=== PATIENT | female | born 1990 | race Caucasian/White ===

== ENCOUNTER → 2017-01-26 | Outpatient (CLI) | payer OTHER ==
--- NOTE | 2017-01-26 11:09 | US ---
EXAMINATION TYPE: US venous doppler duplex LE DATE OF EXAM: 01/26/2017 10:30 AM COMPARISON: NONE CLINICAL HISTORY: BLE I83.93 Vernicose Veins,M79.652 Lle pain R20.2 P. SIDE PERFORMED: demetrio scanned over painful area demetrio lateral thighs over vernicose veins TECHNIQUE: The lower extremity deep venous system is examined utilizing real time linear array sonog sepideh with graded compression, doppler sonography and color-flow sonography. VESSELS IMAGED: External Iliac Vein (EIV) Common Femoral Vein Deep Femoral Vein Greater Saphenous Vein * Femoral Vein Popliteal Vein Small Saphenous Vein * Proximal Calf Veins (* superficial vessels) Right Leg: Negative for DVT Left Leg: Negative for DVT IMPRESSION: 1. Lower extremity venous ultrasound is negative for deep venous thrombosis bilateral lower extremiti es.
== END | disposition home or self-care (01) ==
LOC: RADUSWWP 09:49
PROVIDERS: ATTEND Family Medicine
DX: M79.652 Pain in left thigh (principal); R20.2 Paresthesia of skin
CPT/HCPCS: 93970

== ENCOUNTER → 2017-05-04 | Outpatient (CLI) | payer OTHER ==
--- NOTE | 2017-05-04 12:26 | XR ---
EXAMINATION TYPE: XR chest 2V DATE OF EXAM: 05/04/2017 COMPARISON: 12/29/2015 HISTORY: Cough and fever TECHNIQUE: Frontal and lateral views of the chest are obtained. FINDINGS: There is no focal air space opacity. Peribronchial cuffing may reflect bronchitis. Correlate clinical ly. No evidence for pneumothorax. No pleural effusion. The cardiac silhouette size is within normal limits. The osseous structures are grossly intact. IMPRESSION: 1. Correlate for bronchitis.
== END | disposition home or self-care (01) ==
LOC: RADXRMAIN 12:07
PROVIDERS: ATTEND Family Medicine
DX: R05 Cough (principal); R06.2 Wheezing; R68.83 Chills (without fever)
CPT/HCPCS: 71046; 87502

== ENCOUNTER 2017-08-28 16:50 | Emergency (ER) | payer OTHER ==
[2017-08-28 17:42] VITALS: RESP 18
--- NOTE | 2017-08-28 18:10 | XR ---
EXAMINATION TYPE: XR knee complete RT DATE OF EXAM: 08/28/2017 COMPARISON: NONE HISTORY: Knee pain TECHNIQUE: 3 views FINDINGS: I see no fracture nor dislocation. Joint spaces are normal. There is no evidence of joint e ffusion. IMPRESSION: Negative right knee exam.
--- NOTE | 2017-08-28 20:19 | ED ---
General Adult HPI - General Chief complaint: Extremity Injury, Lower Stated complaint: Knee Pain Time Seen by Provider: 08/28/17 20:02 Source: patient, RN notes reviewed Mode of arrival: ambulatory Limitations: no limitations - History of Present Illness Initial comments: 26-year-old female presents to the emergency department for a chief complaint of right knee pain 2 weeks. Patient states she stood up strangely 2 weeks ago and injured her right knee. Patient states since then she has had some pain in the anterior knee. Patient denies any pain in the posterior knee or calf. Patient denies any pain in the natarajan ankle or foot. Patient states she took Motrin once today but has not been taking it consistently. Patient denies any chance of . Patient has no other complaints at this time including shortness of breath, chest pain, abdominal pain, nausea or vomiting, headache, or visual changes. - Related Data Home Medications Medication Instructions Recorded Confirmed Norgestimate-Ethinyl Estradiol 1 tab PO HS 08/28/17 08/28/17 [Sprintec 28 Day Tablet] Omeprazole [PriLOSEC] 20 mg PO AC-BRKFST 08/28/17 08/28/17 Previous Rx's Medication Instructions Recorded Ibuprofen [Motrin] 600 mg PO Q8HR PRN #20 tab 08/28/17 Allergies Allergy/AdvReac Type Severity Reaction Status Date / Time No Known Allergies Allergy Verified 08/28/17 20:31 Review of Systems ROS Statement: Those systems with pertinent positive or pertinent negative responses have been documented in the HPI. ROS Other: All systems not noted in ROS Statement are negative. Past Medical History Past Medical History: No Reported History History of Any Multi-Drug Resistant Organisms: None Reported Past Surgical History: No Surgical Hx Reported Past Psychological History: No Psychological Hx Reported Smoking Status: Never smoker Past Alcohol Use History: Occasional Past Drug Use History: None Reported General Exam Limitations: no limitations General appearance: alert, in no apparent distress Head exam: Present: atraumatic, normocephalic, normal inspection Respiratory exam: Present: normal lung sounds bilaterally. Absent: respiratory distress, wheezes, rales, rhonchi, stridor Cardiovascular Exam: Present: regular rate, normal rhythm, normal heart sounds. Absent: systolic murmur, diastolic murmur, rubs, gallop, clicks Extremities exam: Present: full ROM (Patient has full extension and flexion of the right knee. Patient is able to bear weight on the right knee. Patient has full range of motion in the right ankle.), tenderness (tenderness in the anterior right knee. No tenderness behind the knee or in the calf.), normal capillary refill (Refill less than 2 seconds and pedal pulse 2+.), other ( sensation intact). Absent: pedal edema, joint swelling, calf tenderness (No calf tenderness, no calf swelling, no increased warmth on the right side.) Course Vital Signs 08/28/17 17:38 Temperature 97.8 F Pulse Rate 92 Respiratory 18 Rate Blood Pressure 168/77 O2 Sat by Pulse 98 Oximetry Medical Decision Making - Medical Decision Making 26-year-old female with a chief complaint of right knee pain 2 weeks. Patient had an injury 2 weeks ago and she stood up wrong and felt a pull in the front of her knee. Patient has had anterior knee pain since then. No pain in the posterior knee or calf. X-ray demonstrates no acute fractures or dislocations. Patient likely has a muscular injury or ligamentous injury of the right knee. She was given a referral to orthopedics. She is to follow-up with orthopedics in one to 2 days. She was given a prescription for Motrin as well. Patient denies any chance of . Patient was also educated to rest ice compress and elevate the right knee. Disposition Clinical Impression: Knee pain, right Disposition: HOME SELF-CARE Condition: Good Instructions: Knee Pain (ED) Additional Instructions: Please take Motrin and Tylenol as directed. Please return to the emergency department if you have any worsening symptoms. Otherwise follow-up with primary care or orthopedics in 1-2 days. Prescriptions: Ibuprofen [Motrin] 600 mg PO Q8HR PRN #20 tab PRN Reason: Pain Is patient prescribed a controlled substance at d/c from ED?: No Referrals: Paola Dunne MD [Primary Care Provider] - 1-2 days Santana Toth DO [Doctor of Osteopathic Medicine] - 1-2 days Time of Disposition: 20:18
[2017-08-28 20:34] VITALS: BP 142/79; PULSE 88; TEMP 98
== END 2017-08-28 20:34 | disposition home or self-care (01) ==
LOC: EC 16:50
DX: M25.561 Pain in right knee (principal); Z79.3 Long term (current) use of hormonal contraceptives; Z79.899 Other long term (current) drug therapy; X50.1XXA Overexertion from prolonged static or awkward postures, initial encounter; Y93.89 Activity, other specified
CPT/HCPCS: 99283

== ENCOUNTER 2019-08-11 20:57 | Emergency (ER) | payer OTHER ==
[2019-08-11] MEDS ORDERED: SODIUM CHLORIDE 0.9% 500 ML 500 ML IV STA (21:27)
--- NOTE | 2019-08-11 22:37 | ED ---
General Adult HPI - General Chief complaint: Chest Pain Stated complaint: Chest pain Time Seen by Provider: 08/11/19 21:03 Source: patient, RN notes reviewed, old records reviewed Mode of arrival: ambulatory Limitations: no limitations - History of Present Illness Initial comments: 28-year-old female patient with no pertinent past medical history significant to ED for evaluation of chest pain. Patient reports that is partially 7 PM she had an she describes approximately one hour of left parasternal chest pain somewhat sharp in nature. Patient does report that throughout the day she also had some midthoracic back pain which is not unusual for her. Denies any current pain this time present any other associated symptoms. Denies any chance of being . Systemic: Pt denies fatigue, fever/chills, rash. Pt denies weakness, night sweats, weight loss. Neuro: Pt denies headache, visual disturbances, syncope or pre-syncope. HEENT: Pt denies ocular discharge or irritation, otalgia, rhinorrhea, pharyngitis or notable lymphadenopathy. Cardiopulmonary: Pt denies chest pain, SOB, heart palpitations, dyspnea on exertion. Abdominal/GI: Pt denies abdominal pain, n/v/d. : Pt denies dysuria, burning w/ urination, frequency/urgency. Denies new onset urinary or bowel incontinence. MSK: Pt denies myalgia, loss of strength or function in extremities. Neuro: Pt denies new onset weakness, paresthesias. - Related Data Home Medications Medication Instructions Recorded Confirmed Norgestimate-Ethinyl Estradiol 1 tab PO HS 08/28/17 08/28/17 [Sprintec 28 Day Tablet] Omeprazole [PriLOSEC] 20 mg PO AC-BRKFST 08/28/17 08/28/17 Previous Rx's Medication Instructions Recorded Ibuprofen [Motrin] 600 mg PO Q8HR PRN #20 tab 08/28/17 Allergies Allergy/AdvReac Type Severity Reaction Status Date / Time No Known Allergies Allergy Verified 08/28/17 20:31 Review of Systems ROS Statement: Those systems with pertinent positive or pertinent negative responses have been documented in the HPI. ROS Other: All systems not noted in ROS Statement are negative. Past Medical History Past Medical History: No Reported History History of Any Multi-Drug Resistant Organisms: None Reported Past Surgical History: No Surgical Hx Reported Past Psychological History: No Psychological Hx Reported Smoking Status: Never smoker Past Alcohol Use History: Occasional Past Drug Use History: None Reported General Exam - General Exam Comments Initial Comments: Constitutional: NAD, AOX3, Pt has pleasant affect. HEENT: NC/AT, trachea midline, neck supple, no lymphadenopathy. Posterior pharynx non erythematous, without exudates. External ears appear normal, without discharge. Mucous membranes moist. Eyes PERRLA, EOM intact. There is no scleral icterus. No pallor noted. Cardiopulmonary: RRR, no murmurs, rubs or gallops, no JVD noted. Lungs CTAB in anterior and posterior alexander. No peripheral edema. Abdominal exam: Abdomen soft and non-distended. Abdomen non-tender to palpation in all 4 quadrants. Bowel sounds active in LLQ. No hepatosplenomegaly. No ecchymosis Neuro: CN II-XII grossly intact. No nuchal rigidity. No raccon eyes, no barksdale sign, no hemotympanum. No cervical spinal tenderness. MSK: Thoracic back pain reproducible on range of motion. No posterior calf tenderness bilaterally, homans sign negative bilaterally. Posterior tibialis and radial pulse +2 bilaterally. Sensation intact in upper and lower extremities. Full active ROM in upper and lower extremities, 5/5 stregnth. Limitations: no limitations Course Vital Signs 08/11/19 08/11/19 08/12/19 21:55 22:59 00:34 Temperature 97.8 F 98.2 F Pulse Rate 75 72 77 Respiratory 18 20 16 Rate Blood Pressure 142/78 137/77 124/63 O2 Sat by Pulse 99 99 100 Oximetry Medical Decision Making - Medical Decision Making 28-year-old female patient with no pertinent past medical history significant to ED for evaluation of chest pain. Patient reports that is partially 7 PM she had an she describes approximately one hour of left parasternal chest pain somewhat sharp in nature. Patient does report that throughout the day she also had some midthoracic back pain which is not unusual for her. Denies any current pain this time present any other associated symptoms. Denies any chance of being . Patient vital signs are stable, afebrile. Physical exam displayed mid thoracic lumbar back discomfort reproducible upon range of motion. Lymph investigations are not impressive. Troponin is negative. D-dimer 0.48. UA negative. Patient continues to be pain-free. Plain films of chest x-ray and lumbar spine do not display acute process. EKG is nonischemic. Patient chest pain is atypical in nature. Pt will be discharged with outpatient follow- up and return to ED if condition worsens. Case discussed with Dr. Degroot. - Lab Data Result diagrams: 08/11/19 22:15 08/11/19 22:15 Lab Results 08/11/19 08/11/19 08/11/19 Range/Units 22:15 22:15 22:15 WBC 9.9 (3.8-10.6) k/uL RBC 4.89 (3.80-5.40) m/uL Hgb 13.5 (11.4-16.0) gm/dL Hct 41.3 (34.0-46.0) % MCV 84.5 (80.0-100.0) fL MCH 27.5 (25.0-35.0) pg MCHC 32.6 (31.0-37.0) g/dL RDW 13.8 (11.5-15.5) % Plt Count 273 (150-450) k/uL Neutrophils % 74 % Lymphocytes % 18 % Monocytes % 3 % Eosinophils % 3 % Basophils % 0 % Neutrophils # 7.3 (1.3-7.7) k/uL Lymphocytes # 1.8 (1.0-4.8) k/uL Monocytes # 0.3 (0-1.0) k/uL Eosinophils # 0.3 (0-0.7) k/uL Basophils # 0.0 (0-0.2) k/uL D-Dimer 0.48 (<0.60) mg/L FEU Sodium 138 (137-145) mmol/L Potassium 4.1 (3.5-5.1) mmol/L Chloride 105 (98-107) mmol/L Carbon Dioxide 26 (22-30) mmol/L Anion Gap 7 mmol/L BUN 13 (7-17) mg/dL Creatinine 0.70 (0.52-1.04) mg/dL Est GFR (CKD-EPI)AfAm >90 (>60 ml/min/1.73 sqM) Est GFR (CKD-EPI)NonAf >90 (>60 ml/min/1.73 sqM) Glucose 89 (74-99) mg/dL Calcium 8.9 (8.4-10.2) mg/dL Total Bilirubin 0.3 (0.2-1.3) mg/dL AST 18 (14-36) U/L ALT 16 (4-34) U/L Alkaline Phosphatase 75 (38-126) U/L Troponin I (0.000-0.034) ng/mL Total Protein 6.6 (6.3-8.2) g/dL Albumin 3.6 (3.5-5.0) g/dL Urine Color Urine Appearance (Clear) Urine pH (5.0-8.0) Ur Specific [place] (1.001-1.035) Urine Protein (Negative) Urine Glucose (UA) (Negative) Urine Ketones (Negative) Urine Blood (Negative) Urine Nitrite (Negative) Urine Bilirubin (Negative) Urine Urobilinogen (<2.0) mg/dL Ur Leukocyte Esterase (Negative) Urine RBC (0-5) /hpf Urine WBC (0-5) /hpf Ur Squamous Epith Cells (0-4) /hpf Urine Bacteria (None) /hpf Hyaline Casts (0-2) /lpf Urine Mucus (None) /hpf Urine HCG, Qual (Not Detectd) 08/11/19 08/11/19 08/11/19 Range/Units 22:15 22:30 22:30 WBC (3.8-10.6) k/uL RBC (3.80-5.40) m/uL Hgb (11.4-16.0) gm/dL Hct (34.0-46.0) % MCV (80.0-100.0) fL MCH (25.0-35.0) pg MCHC (31.0-37.0) g/dL RDW (11.5-15.5) % Plt Count (150-450) k/uL Neutrophils % % Lymphocytes % % Monocytes % % Eosinophils % % Basophils % % Neutrophils # (1.3-7.7) k/uL Lymphocytes # (1.0-4.8) k/uL Monocytes # (0-1.0) k/uL Eosinophils # (0-0.7) k/uL Basophils # (0-0.2) k/uL D-Dimer (<0.60) mg/L FEU Sodium (137-145) mmol/L Potassium (3.5-5.1) mmol/L Chloride (98-107) mmol/L Carbon Dioxide (22-30) mmol/L Anion Gap mmol/L BUN (7-17) mg/dL Creatinine (0.52-1.04) mg/dL Est GFR (CKD-EPI)AfAm (>60 ml/min/1.73 sqM) Est GFR (CKD-EPI)NonAf (>60 ml/min/1.73 sqM) Glucose (74-99) mg/dL Calcium (8.4-10.2) mg/dL Total Bilirubin (0.2-1.3) mg/dL AST (14-36) U/L ALT (4-34) U/L Alkaline Phosphatase (38-126) U/L Troponin I <0.012 (0.000-0.034) ng/mL Total Protein (6.3-8.2) g/dL Albumin (3.5-5.0) g/dL Urine Color Yellow Urine Appearance Cloudy H (Clear) Urine pH 5.5 (5.0-8.0) Ur Specific [place] 1.018 (1.001-1.035) Urine Protein Negative (Negative) Urine Glucose (UA) Negative (Negative) Urine Ketones Negative (Negative) Urine Blood Negative (Negative) Urine Nitrite Negative (Negative) Urine Bilirubin Negative (Negative) Urine Urobilinogen <2.0 (<2.0) mg/dL Ur Leukocyte Esterase Negative (Negative) Urine RBC 1 (0-5) /hpf Urine WBC 2 (0-5) /hpf Ur Squamous Epith Cells 8 H (0-4) /hpf Urine Bacteria Rare H (None) /hpf Hyaline Casts 1 (0-2) /lpf Urine Mucus Rare H (None) /hpf Urine HCG, Qual Not Detected (Not Detectd) - EKG Data -: EKG Interpreted by Me (and Dr. Degroot ) EKG Comments: Ventricular rate 75, NC interval 138, QRS 98, QT/QTC 388/433. Normal sinus rhythm, normal EKG, no concern for acute ischemia. Disposition Clinical Impression: Atypical chest pain, Strain of thoracic back region Disposition: HOME SELF-CARE Condition: Stable Instructions (If sedation given, give patient instructions): Chest Wall Pain (ED), Thoracic Back Strain (ED) Additional Instructions: Follow-up with primary care provider tomorrow. Return to ER if worsens in any way. Is patient prescribed a controlled substance at d/c from ED?: No Referrals: Paola Dunne MD [Primary Care Provider] - 1-2 days
[2019-08-11 23:00] LABS: Basophils % (A) 0 %; Eosinophils # (A) 0.3 k/uL (0-0.7); Eosinophils % (A) 3 %; HCT 41.3 % (34.0-46.0); HGB 13.5 gm/dL (11.4-16.0); Lymphocytes # (A) 1.8 k/uL (1.0-4.8); Lymphocytes % (A) 18 %; MCH 27.5 pg (25.0-35.0); MCHC 32.6 g/dL (31.0-37.0); MCV 84.5 fL (80.0-100.0); Monocytes # (A) 0.3 k/uL (0-1.0); Monocytes % (A) 3 %; Neutrophils # (A) 7.3 k/uL (1.3-7.7); Neutrophils % (A) 74 %; Platelet Count 273 k/uL (150-450); RBC 4.89 m/uL (3.80-5.40); RDW 13.8 % (11.5-15.5); WBC 9.9 k/uL (3.8-10.6)
[2019-08-11 23:09] LABS: ALT 16 U/L (4-34); AST 18 U/L (14-36); African American GFR (CKD) >90 (>60 ml/min/1.73 sqM); Albumin 3.6 g/dL (3.5-5.0); Alkaline Phosphatase 75 U/L (38-126); Anion Gap 7 mmol/L; Blood Urea Nitrogen 13 mg/dL (7-17); Calcium 8.9 mg/dL (8.4-10.2); Carbon Dioxide 26 mmol/L (22-30); Chloride 105 mmol/L (98-107); Glucose 89 mg/dL (74-99); Non-African American GFR(CKD) >90 (>60 ml/min/1.73 sqM); Potassium 4.1 mmol/L (3.5-5.1); Sodium 138 mmol/L (137-145); Total Bilirubin 0.3 mg/dL (0.2-1.3); Total Protein 6.6 g/dL (6.3-8.2)
--- NOTE | 2019-08-11 23:09 | XR ---
EXAMINATION TYPE: XR chest 1V portable DATE OF EXAM: 08/11/2019 COMPARISON: 05/04/2017 HISTORY: Chest pain TECHNIQUE: FINDINGS: Heart and mediastinum are normal. Lungs are clear of infiltrate. There is no heart failure. There are chest leads. Costophrenic angles are clear. Bony thorax is intact IMPRESSION: No active cardiopulmonary disease. Normal heart. No change.
--- NOTE | 2019-08-11 23:10 | XR ---
EXAMINATION TYPE: XR thoracic spine complete DATE OF EXAM: 08/11/2019 COMPARISON: NONE HISTORY: Back pain TECHNIQUE: 4 views FINDINGS: Thoracic vertebra have normal spacing and alignment. Posterior elements are intact. There i s no paraspinal mass. There is no compression fracture. IMPRESSION: Normal thoracic spine exam.
[2019-08-11 23:14] LABS: Appearance,Urine Cloudy (Clear); Bacteria,Urine Rare /hpf; Bilirubin,Urine Negative (Negative); Blood,Urine Negative (Negative); Color,Urine Yellow; Glucose,Urine (UA) Negative (Negative); Hyaline Casts,Urine 1 /lpf (0-2); Ketones,Urine Negative (Negative); Leukocyte Esterase,Urine Negative (Negative); Mucus,Urine Rare /hpf; Nitrite,Urine Negative (Negative); PH, Urine 5.5 (5.0-8.0); Protein,Urine Negative (Negative); RBC,Urine 1 /hpf (0-5); Specific Gravity,Urine 1.018 (1.001-1.035); Squamous Epithelial Cell,Urine 8 /hpf (0-4); Urobilinogen,Urine <2.0 mg/dL (<2.0); WBC,Urine 2 /hpf (0-5)
[2019-08-12] MEDS ORDERED: ACETAMINOPHEN TAB 325 MG TAB PO STA ×2 (00:14→00:32)
[2019-08-12 00:36] VITALS: BP 124/63; PULSE 77; RESP 16; TEMP 98.2
== END 2019-08-12 00:34 | disposition home or self-care (01) ==
LOC: EC 20:57
DX: R07.89 Other chest pain (principal); S29.012A Strain of muscle and tendon of back wall of thorax, initial encounter; X58.XXXA Exposure to other specified factors, initial encounter
CPT/HCPCS: 36415; 71045; 72072; 80053; 81001; 81025; 84484; 85025; 85379; 93005; 96360; 99285

== ENCOUNTER → 2019-12-12 | Outpatient (CLI) | payer OTHER ==
--- NOTE | 2019-12-12 15:29 | US ---
EXAMINATION TYPE: US pelvis complete transvag plus Doppler DATE OF EXAM: 12/12/2019 COMPARISON: 06/15/2015 CLINICAL HISTORY: 29-year-old female N91.2 Amenorrhea. Patient states not having a period x 4 months. Patient started menses x 2 days ago. TECHNIQUE: Transabdominal sonographic images of the pelvis were acquired. Transvaginal sonographic images were medically necessary to better assess the following anatomy: Ovaries. Color Doppler and sp ectral waveform analysis of the ovarian arteries and veins. Date of LMP: 12/10/2019, G0 FINDINGS: EXAM MEASUREMENTS: Uterus: 11.3 x 6.2 x 4.4 cm Endometrial Stripe: 0.5 cm Right Ovary: 3.8 x 2.9 x 3.0 cm Left Ovary: 9.4 x 7.1 x 6.8 cm 1. Uterus: Anteverted and otherwise wnl 2. Endometrium: wnl 3. Right Ovary: echogenic circular lesion - 2.2 x 1.8 x 1.7 cm, possible complicated cyst or dermoid . There is satisfactory arterial and venous flow. 4. Left Ovary: Large 9.4 cm mixed lesion comprised of some suspected cystic area and echogenic nodul ar areas in the expected region of the left ovary. No residual normal ovarian parenchyma seen. 5. Bilateral Adnexa: No other evident adnexal abnormality. 6. Posterior cul-de-sac: no free fluid IMPRESSION: 1. Large 9.4 cm lesion comprised of cystic portion and echogenic nodular areas within the left adnexa likely of ovarian etiology. No normal ovarian parenchyma seen to assess the vasculature. 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 2. Possible smaller 2.2 cm dermoid within the right ovary. No evidence for right ovarian torsion. 3. Femoral pelvic MRI to further evaluate.
== END | disposition home or self-care (01) ==
LOC: RADUSWWP 12:11
PROVIDERS: ATTEND Family Medicine
DX: N91.2 Amenorrhea, unspecified (principal); N83.202 Unspecified ovarian cyst, left side; N83.201 Unspecified ovarian cyst, right side
CPT/HCPCS: 76830; 76856

== ENCOUNTER → 2020-05-19 | Outpatient (CLI) | payer OTHER ==
--- NOTE | 2020-05-19 13:49 | US ---
EXAMINATION TYPE: US pelvis complete transvag DATE OF EXAM: 05/19/2020 COMPARISON: US 12/12/2019 CLINICAL HISTORY: N91.2; N92.6; Z87.42. Irregular cycles. Patient had a dermoid removed from her left ovary in January 2020. Morbidly obese TECHNIQUE: . Transabdominal sonographic images of the pelvis were acquired. Transvaginal sonographi c images were medically necessary to better assess the following anatomy: Ovaries Date of LMP: Today, 05/19/2020 EXAM MEASUREMENTS: Uterus: 7.6 x 4.0 x 5.4 cm Endometrial Stripe: 0.5 cm Right Ovary: 3.6 x 2.5 x 3.6 cm Left Ovary: 3.1 x 2.1 x 1.9 cm 1. Uterus: Anteverted Nabothian cysts visualized 2. Endometrium: wnl 3. Right Ovary: Echogenic area visualized measuring 2.0 x 1.9 x 2.0 cm, probable dermoid. This previ ously measured 2.2 x 1.8 x 1.7 cm on 12/12/2019 4. Left Ovary: Difficult to exclude some residual dermoid tissue measuring 2.0 cm 5. Bilateral Adnexa: Free fluid left adnexa 6. Posterior cul-de-sac: small amount of free fluid visualized Anteverted uterus. Some tiny nabothian cysts in the upper cervix. Small amount of free fluid in pelvi c cul-de-sac extending left of midline. Nonsimple fluid in the left pelvis is noted. Poor visualizati on of the endometrium felt within normal limits. Both ovaries identified. Right ovary shows 2.0 cm peripheral hyperechoic lesion similar to prior. Lef t ovary shows some peripheral hyperechoic tissue remaining present. IMPRESSION: Possible some residual dermoid left ovary but significantly improved from prior. Stable 2 .0 cm lesion right ovary favoring dermoid. Small amount of nonsimple fluid in pelvis extending left o f midline.
== END | disposition home or self-care (01) ==
LOC: RADUSWWP 12:21
PROVIDERS: ATTEND Family Medicine
DX: N83.8 Other noninflammatory disorders of ovary, fallopian tube and broad ligament (principal); R93.5 Abnormal findings on diagnostic imaging of other abdominal regions, including retroperitoneum; Z87.42 Personal history of other diseases of the female genital tract
CPT/HCPCS: 76830; 76856

== ENCOUNTER 2020-10-07 01:16 | Emergency (ER) | payer OTHER ==
[2020-10-07 01:31] VITALS: TEMP 97.9
[2020-10-07] MEDS ORDERED: HYDROmorphone 1 MG/ML 1 ML SYRINGE IM STA (01:48)
[2020-10-07] MEDS ORDERED: KETOROLAC 15 MG/ML 1 ML VIAL IM STA (01:48)
[2020-10-07] MEDS ORDERED: predniSONE 20 MG TAB PO STA (01:48)
--- NOTE | 2020-10-07 01:55 | ED ---
Back Pain HPI - General Chief Complaint: Back Pain/Injury Stated Complaint: Lt Leg Pain Time Seen by Provider: 10/07/20 01:34 Source: patient Limitations: no limitations - History of Present Illness Initial Comments: 's patient is a 29-year-old woman who presents with complaint of left low back pain radiating to her left leg. She states that is been going on about 2 weeks, getting a little worse over the past few days. Tonight she could not obtain any rests she presents for evaluation. The patient denies any left leg weakness. No change in bladder or bowel function. No saddle anesthesia. She did not have any known trauma. 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 MD Complaint: back pain Onset/Timin -: week(s) Similar Symptoms Previously: Yes Place: work Radiation: buttocks, left leg Severity: severe Quality: burning, aching Consistency: constant Improves With: none Worsens With: sitting upright Associated Symptoms: denies other symptoms - Related Data Home Medications Medication Instructions Recorded Confirmed Norgestimate-Ethinyl Estradiol 1 tab PO HS 08/28/17 08/28/17 [Sprintec 28 Day Tablet] Omeprazole [PriLOSEC] 20 mg PO AC-BRKFST 08/28/17 08/28/17 Previous Rx's Medication Instructions Recorded Ibuprofen [Motrin] 600 mg PO Q8HR PRN #20 tab 08/28/17 Methocarbamol [Robaxin-750] 750 mg PO TID PRN #30 tablet 10/07/20 predniSONE 60 mg PO DAILY #30 tab 10/07/20 Allergies Allergy/AdvReac Type Severity Reaction Status Date / Time No Known Allergies Allergy Verified 10/07/20 01:31 Review of Systems ROS Statement: Those systems with pertinent positive or pertinent negative responses have been documented in the HPI. ROS Other: All systems not noted in ROS Statement are negative. Constitutional: Denies: fever, chills Respiratory: Denies: cough, dyspnea Cardiovascular: Denies: chest pain, palpitations, edema Gastrointestinal: Denies: abdominal pain, diarrhea, constipation Genitourinary: Denies: dysuria, frequency, hematuria Musculoskeletal: Reports: as per HPI, back pain Skin: Denies: rash Neurological: Denies: headache, weakness, numbness, paresthesias Past Medical History Past Medical History: No Reported History History of Any Multi-Drug Resistant Organisms: None Reported Past Surgical History: No Surgical Hx Reported Additional Past Surgical History / Comment(s): cystectomy Past Psychological History: No Psychological Hx Reported Smoking Status: Never smoker Past Alcohol Use History: Occasional Past Drug Use History: None Reported General Exam Limitations: no limitations General appearance: alert, in no apparent distress GI/Abdominal exam: Present: soft. Absent: distended, tenderness, guarding, rebound, mass, pulsatile mass Extremities exam: Present: normal inspection, full ROM, normal capillary refill. Absent: tenderness, pedal edema, calf tenderness Back exam: Present: normal inspection. Absent: CVA tenderness (R), CVA tenderness (L), paraspinal tenderness, vertebral tenderness Neurological exam: Present: reflexes normal. Absent: motor sensory deficit Skin exam: Present: warm, dry, intact, normal color. Absent: rash Course Vital Signs 10/07/20 01:28 Temperature 97.9 F Pulse Rate 91 Respiratory 18 Rate Blood Pressure 141/79 O2 Sat by Pulse 98 Oximetry Disposition Clinical Impression: Sciatica Disposition: HOME SELF-CARE Condition: Good Instructions (If sedation given, give patient instructions): Lumbar Radiculopathy (ED) Prescriptions: predniSONE 60 mg PO DAILY #30 tab Methocarbamol [Robaxin-750] 750 mg PO TID PRN #30 tablet PRN Reason: pain Is patient prescribed a controlled substance at d/c from ED?: No Referrals: Paola Dunne MD [Primary Care Provider] - 1-2 days
[2020-10-07 03:04] VITALS: BP 128/68; PULSE 88; RESP 16
== END 2020-10-07 03:00 | disposition home or self-care (01) ==
LOC: EC 01:16
DX: M54.42 Lumbago with sciatica, left side (principal); M79.605 Pain in left leg
CPT/HCPCS: 96372; 99283

== ENCOUNTER → 2020-11-04 | Outpatient (CLI) | payer OTHER ==
--- NOTE | 2020-11-04 14:12 | XR ---
EXAM TYPE: LUMBAR SPINE X RAY SERIES COMPARISON: NONE HISTORY: Pain TECHNIQUE: 4 views are submitted. FINDINGS: Alignment is anatomic. The pedicles are intact. The transverse processes are intact. There is no s pondylolysis or spondylolisthesis. IMPRESSION: 1. No acute process. If there is concern for disc herniation consider MRI follow-up.
== END | disposition home or self-care (01) ==
LOC: RADXRMAIN 12:10
PROVIDERS: ATTEND Family Medicine
DX: M54.5 Low back pain (principal)
CPT/HCPCS: 72110

== ENCOUNTER → 2020-12-23 | Outpatient (CLI) | payer OTHER ==
--- NOTE | 2020-12-23 16:06 | US ---
EXAMINATION TYPE: US pelvis complete transvag DATE OF EXAM: 12/23/2020 COMPARISON: 05/19/2020 and 12/12/2019 CLINICAL HISTORY: N83.201 Ovarian cyst Rt, N83.202 Ovarian cyst Lt. Patient has history of dermoid re moval on left ovary TECHNIQUE: Transvaginal (TV) and Transabdominal (TA) . Transabdominal sonographic images of the pel vis were acquired. Transvaginal sonographic images were medically necessary to better assess the fol lowing anatomy: Date of LMP: Irregular ,currently spotting EXAM MEASUREMENTS: Uterus: 7.9x4.4x5.6 cm Endometrial Stripe: 0.5 cm Right Ovary: 4.1x 2.7x3.6 cm Left Ovary: 1.7x1.1x2.1 cm 1. Uterus: Anteverted wnl 2. Endometrium: wnl 3. Right Ovary: Hyperechoic solid mass seen 1.5x1.7x1.6cm. possible dermoid 4. Left Ovary: Free fluid seen adjacent the left ovary and posterior cul de sac 5. Bilateral Adnexa: Free fluid seen in the left adnexa 6. Posterior cul-de-sac: Free fluid seen Difficult due to body habitus. Patient has a history of dermoid removal of the left. IMPRESSION: 1. Solid appearing 1.6 cm mass right ovary. Additional workup is recommended. 2. Small amount of fluid within the pelvis can be physiologic.
== END | disposition home or self-care (01) ==
LOC: RADUSWWP 15:04
PROVIDERS: ATTEND Family Medicine
DX: N83.8 Other noninflammatory disorders of ovary, fallopian tube and broad ligament (principal)
CPT/HCPCS: 76830; 76856

== ENCOUNTER 2021-08-29 23:10 | Emergency (ER) | payer OTHER ==
[2021-08-29 23:37] VITALS: BP 155/99; PULSE 89; RESP 19; TEMP 98.9
[2021-08-30] MEDS ORDERED: SODIUM CHLORIDE 0.9% 500 ML 500 ML IV ONE (00:03)
[2021-08-30 00:24] LABS: Amorphous Sediment,Urine Rare /hpf; Appearance,Urine Clear (Clear); Bacteria,Urine Occasional /hpf; Bilirubin,Urine Negative (Negative); Blood,Urine Moderate (Negative); Calcium Oxalate Crystals,Urine Occasional /hpf; Color,Urine Yellow; Glucose,Urine (UA) Negative (Negative); Ketones,Urine Trace (Negative); Leukocyte Esterase,Urine Trace (Negative); Mucus,Urine Many /hpf; Nitrite,Urine Negative (Negative); PH, Urine 5.5 (5.0-8.0); Protein,Urine 1+ (Negative); Squamous Epithelial Cell,Urine 1 /hpf (0-4); Urobilinogen,Urine <2.0 mg/dL (<2.0); WBC,Urine 7 /hpf (0-5)
--- NOTE | 2021-08-30 00:44 | US ---
EXAMINATION TYPE: Transabdominal DATE OF EXAM: 08/30/2021 12:30 AM COMPARISON: NONE CLINICAL HISTORY: vaginal bleeding, 6 weeks . Spotting EXAM PERFORMED: Transabdominal (TA) EXAM MEASUREMENTS: GESTATIONAL AGE / DATING Physician Established: Not yet established Dates by LMP: LMP unknown Dates by First Scan: No previous here Dates by Current Scan for: ( 6 weeks/0 days) EDC: 04/25/2022 MATERNAL ANATOMY Uterus: 8.9 x 6.0 x 7.2cm Right Ovary: not seen Left Ovary: not seen Post CDS / Adnexa: wnl Presence of free fluid: no Presence of corpus luteal cyst: not seen Presence of subchorionic bleed: no GESTATION / SURVEY CRL: 0.3cm (6 weeks/0 days) Yolk Sac (normal less than 6mm): not seen No heart tones seen at this time IUP: Demise Difficult and limited study due to patient body habitus IMPRESSION: There is evidence for intrauterine demise at approximately 6 weeks gestation. No adnexal mass o r free fluid.
--- NOTE | 2021-08-30 01:33 | ED ---
Female Urogenital HPI - General Chief complaint: Vaginal Bleeding Stated complaint: Vaginal Bleeding, 6 Weeks Time Seen by Provider: 08/30/21 00:04 Source: patient, RN notes reviewed, old records reviewed Mode of arrival: ambulatory Limitations: no limitations - History of Present Illness Initial comments: This is a 30-year-old female with first is currently on going at about 6 weeks. Patient's presents today with vaginal bleeding no abdominal pain no cramping. Patient has had no other pregnancies that she is aware of. Patient has no trauma no other complaints. Unsure of blood type MD Complaint: vaginal bleeding (In ) -: hour(s) Location: suprapubic Radiation: non-radiating Severity: mild Severity scale (1-10): 1 Consistency: intermittent Improves with: none Patient : Yes Associated Symptoms: vaginal bleeding - Related Data Sexually active: No Home Medications Medication Instructions Recorded Confirmed Norgestimate-Ethinyl Estradiol 1 tab PO HS 08/28/17 08/28/17 [Sprintec 28 Day Tablet] Omeprazole [PriLOSEC] 20 mg PO AC-BRKFST 08/28/17 08/28/17 Previous Rx's Medication Instructions Recorded Ibuprofen [Motrin] 600 mg PO Q8HR PRN #20 tab 08/28/17 Methocarbamol [Robaxin-750] 750 mg PO TID PRN #30 tablet 10/07/20 predniSONE 60 mg PO DAILY #30 tab 10/07/20 Allergies Allergy/AdvReac Type Severity Reaction Status Date / Time No Known Allergies Allergy Verified 08/29/21 23:37 Review of Systems ROS Statement: Those systems with pertinent positive or pertinent negative responses have been documented in the HPI. ROS Other: All systems not noted in ROS Statement are negative. Past Medical History Past Medical History: No Reported History Additional Past Medical History / Comment(s): PCOS History of Any Multi-Drug Resistant Organisms: None Reported Past Surgical History: No Surgical Hx Reported Additional Past Surgical History / Comment(s): cystectomy Past Psychological History: No Psychological Hx Reported Smoking Status: Never smoker Past Alcohol Use History: Occasional Past Drug Use History: None Reported General Exam General appearance: obese Head exam: Present: atraumatic, normocephalic, normal inspection Eye exam: Present: normal appearance, PERRL, EOMI. Absent: scleral icterus, conjunctival injection, periorbital swelling ENT exam: Present: normal exam, mucous membranes moist Neck exam: Present: normal inspection. Absent: tenderness, meningismus, lymphadenopathy Respiratory exam: Present: normal lung sounds bilaterally. Absent: respiratory distress, wheezes, rales, rhonchi, stridor Cardiovascular Exam: Present: regular rate, normal rhythm, normal heart sounds. Absent: systolic murmur, diastolic murmur, rubs, gallop, clicks GI/Abdominal exam: Present: soft, normal bowel sounds. Absent: distended, tenderness, guarding, rebound, rigid Extremities exam: Present: normal inspection, full ROM, normal capillary refill. Absent: tenderness, pedal edema, joint swelling, calf tenderness Back exam: Present: normal inspection Neurological exam: Present: alert, oriented X3, CN II-XII intact Psychiatric exam: Present: normal affect, normal mood Skin exam: Present: warm, dry, intact, normal color. Absent: rash Course Vital Signs 08/29/21 23:32 Temperature 98.9 F Pulse Rate 89 Respiratory 19 Rate Blood Pressure 155/99 O2 Sat by Pulse 100 Oximetry - Reevaluation(s) Reevaluation #1: 08/30/21 01:32 Records reviewed Reevaluation #2: 08/30/21 01:32 Spoke with patient at length regarding threatened , need for repeat beta hCG Quant she understands Reevaluation #3: 08/30/21 01:32 Patient has no significant abdominal pain Medical Decision Making - Medical Decision Making 30 female DF for evaluation of vaginal bleeding of , threatened miscarriage. Patient given second beta hCG drawn can be discharged home - Lab Data Lab Results 08/30/21 Range/Units 00:03 Urine Color Yellow Urine Appearance Clear (Clear) Urine pH 5.5 (5.0-8.0) Ur Specific [place] 1.030 (1.001-1.035) Urine Protein 1+ H (Negative) Urine Glucose (UA) Negative (Negative) Urine Ketones Trace H (Negative) Urine Blood Moderate H (Negative) Urine Nitrite Negative (Negative) Urine Bilirubin Negative (Negative) Urine Urobilinogen <2.0 (<2.0) mg/dL Ur Leukocyte Esterase Trace H (Negative) Urine WBC 7 H (0-5) /hpf Ur Squamous Epith Cells 1 (0-4) /hpf Calcium Oxalate Crystal Occasional H (None) /hpf Amorphous Sediment Rare H (None) /hpf Urine Bacteria Occasional H (None) /hpf Urine Mucus Many H (None) /hpf - Radiology Data Radiology results: report reviewed (Ultrasound abdomen for OB does show no current viable IUP), image reviewed Disposition Clinical Impression: Threatened Disposition: HOME SELF-CARE Condition: Good Instructions (If sedation given, give patient instructions): Threatened Mis carriage (ED) Is patient prescribed a controlled substance at d/c from ED?: No Referrals: Crystal Lee DO [Doctor of Osteopathic Medicine] - 1-2 days
[2021-08-30 01:55] LABS: Basophils # (A) 0.1 k/uL (0-0.2); Basophils % (A) 1 %; Eosinophils # (A) 0.4 k/uL (0-0.7); Eosinophils % (A) 3 %; HCT 41.2 % (34.0-46.0); Lymphocytes # (A) 2.2 k/uL (1.0-4.8); Lymphocytes % (A) 18 %; MCH 27.6 pg (25.0-35.0); MCHC 31.5 g/dL (31.0-37.0); MCV 87.5 fL (80.0-100.0); Mean Platelet Volume 7.8; Monocytes # (A) 0.4 k/uL (0-1.0); Monocytes % (A) 3 %; Neutrophils # (A) 8.7 k/uL (1.3-7.7); Neutrophils % (A) 74 %; Platelet Count 253 k/uL (150-450); RDW 13.7 % (11.5-15.5); WBC 11.7 k/uL (3.8-10.6)
[2021-08-30 02:01] LABS: African American GFR (CKD) >90 (>60 ml/min/1.73 sqM); Anion Gap 7 mmol/L; Blood Urea Nitrogen 10 mg/dL (7-17); Calcium 8.6 mg/dL (8.4-10.2); Carbon Dioxide 22 mmol/L (22-30); Chloride 106 mmol/L (98-107); Non-African American GFR(CKD) >90 (>60 ml/min/1.73 sqM); Sodium 135 mmol/L (137-145)
[2021-08-30 02:18] LABS: HCG,Quantitative Serum 834.8 mIU/mL; Potassium 5.2 mmol/L (3.5-5.1)
[2021-08-30 02:19] LABS: Glucose 85 mg/dL (74-99)
== END 2021-08-30 01:41 | disposition home or self-care (01) ==
LOC: EC 23:10
DX: O20.0 Threatened abortion (principal); Z3A.01 Less than 8 weeks gestation of pregnancy
CPT/HCPCS: 36415; 76801; 76817; 80048; 81001; 84702; 85025; 86900; 86901; 99284

== ENCOUNTER → 2021-09-02 | Outpatient (CLI) | payer OTHER | END | disposition home or self-care (01) | LOC: LABWHC1 17:33 | PROVIDERS: ATTEND Obstetrics & Gynecology Obstetrics | DX: O02.1 Missed abortion (principal); Z3A.00 Weeks of gestation of pregnancy not specified | CPT/HCPCS: 36415; 84702 ==

== ENCOUNTER → 2021-09-13 | Outpatient (CLI) | payer OTHER | END | disposition home or self-care (01) | LOC: LABWHC1 08:40 | PROVIDERS: ATTEND Obstetrics & Gynecology Obstetrics | DX: O02.1 Missed abortion (principal); Z3A.00 Weeks of gestation of pregnancy not specified | CPT/HCPCS: 36415; 84702 ==

== ENCOUNTER → 2022-07-08 | Outpatient (CLI) | payer OTHER ==
--- NOTE | 2022-07-08 13:30 | US ---
EXAMINATION TYPE: US pelvis complete transvag DATE OF EXAM: 07/08/2022 COMPARISON: Multiple US's. CLINICAL HISTORY: D27.0 DERMOID CYST OF RT OVARY,N92.6 IRREG MENSES. TECHNIQUE: Transvaginal (TV) and Transabdominal (TA) . Transabdominal sonographic images of the pel vis were acquired. Transvaginal sonographic images were medically necessary to better assess the fol lowing anatomy: ovaries. Date of LMP: 05/17/2022 EXAM MEASUREMENTS: Uterus: 8.9 x 4.6 x 6.0 cm Endometrial Stripe: 1.9 cm Right Ovary: 4.9 x 3.0 x 3.8 cm Left Ovary: 2.3 x 2.0 x 1.9 cm 1. Uterus: Anteverted wnl 2. Endometrium: measures 1.9 cm. 3. Right Ovary: cyst measures 2.1 x 1.7 x 2.5 cm, echogenic lesion measures 1.5 x 1.1 x 1.7 cm. 4. Left Ovary: wnl 5. Bilateral Adnexa: wnl 6. Posterior cul-de-sac: small amount of free fluid IMPRESSION: 1. Stable hyperechoic echogenic lesion right ovary could reflect a small dermoid. Adjacent cysts note d as well.
== END | disposition home or self-care (01) ==
LOC: RADUSWWP 12:49
PROVIDERS: ATTEND Family Medicine
DX: D27.0 Benign neoplasm of right ovary (principal); N92.6 Irregular menstruation, unspecified; N83.8 Other noninflammatory disorders of ovary, fallopian tube and broad ligament
CPT/HCPCS: 76830; 76856

== ENCOUNTER 2022-07-22 05:09 | Emergency (ER) | payer OTHER ==
[2022-07-22] MEDS: SODIUM CHLORIDE 0.9% 1,000 ML IV ONE (05:52)
[2022-07-22] MEDS: ONDANSETRON 4 MG/2 ML VIAL IVP STA (05:52)
[2022-07-22] MEDS: KETOROLAC 15 MG/ML 1 ML VIAL IVP STA (05:53)
[2022-07-22 06:02] LABS: Basophils % (A) 0 %; Eosinophils # (A) 0.2 k/uL (0-0.7); Eosinophils % (A) 2 %; HCT 39.7 % (34.0-46.0); HGB 13.2 gm/dL (11.4-16.0); Lymphocytes # (A) 2.8 k/uL (1.0-4.8); Lymphocytes % (A) 24 %; MCHC 33.1 g/dL (31.0-37.0); MCV 84.4 fL (80.0-100.0); Mean Platelet Volume 7.8; Monocytes # (A) 0.4 k/uL (0-1.0); Monocytes % (A) 4 %; Neutrophils # (A) 8.4 k/uL (1.3-7.7); Neutrophils % (A) 70 %; Platelet Count 279 k/uL (150-450); RDW 13.6 % (11.5-15.5)
[2022-07-22 06:11] LABS: ALT 22 U/L (4-34); AST 19 U/L (14-36); African American GFR (CKD) >90 (>60 ml/min/1.73 sqM); Albumin 3.8 g/dL (3.5-5.0); Alkaline Phosphatase 82 U/L (38-126); Anion Gap 9 mmol/L; Blood Urea Nitrogen 22 mg/dL (7-17); Calcium 8.8 mg/dL (8.4-10.2); Carbon Dioxide 26 mmol/L (22-30); Chloride 102 mmol/L (98-107); Glucose 129 mg/dL (74-99); Lipase 209 U/L (23-300); Non-African American GFR(CKD) >90 (>60 ml/min/1.73 sqM); Potassium 4.3 mmol/L (3.5-5.1); Sodium 137 mmol/L (137-145); Total Bilirubin 0.4 mg/dL (0.2-1.3); Total Protein 6.8 g/dL (6.3-8.2)
--- NOTE | 2022-07-22 06:20 | ED ---
General Adult HPI - General Source: patient, family Mode of arrival: wheelchair Limitations: no limitations <Luis Manuel Argueta - Last Filed: 07/22/22 06:09> <Luis A Fofana - Last Filed: 07/22/22 08:33> - General Chief complaint: Abdominal Pain Stated complaint: Abdominal Pain Time Seen by Provider: 07/22/22 05:34 - History of Present Illness Initial comments: This is a 31-year-old female with a past medical history including [place] presents emergency department for sudden right sided flank and right lower quadr ant abdominal pain. The patient stated that this pain woke her up from sleep and it was sharp in nature as a "pinching" sensation. The patient stated that she had significant pain with nausea, vomiting or lightheadedness. The patient stated that she has had significant cramping from her heavy menstrual period but stated that she felt this was completely different. The patient denied any dysuria or increased urinary frequency and denied any similar episodes in the past. The patient did state that the pain does come and go. The patient stated that the pain was subsiding when I evaluated her but stated that the pain had previously been consistent over the last 1 hour. (Luis Manuel Argueta) - Related Data Home Medications Medication Instructions Recorded Confirmed Omeprazole [PriLOSEC] 20 mg PO AC-BRKFST 08/28/17 08/28/17 norgestimate-ethinyl estradioL 1 tab PO HS 08/28/17 08/28/17 [Sprintec 28 Day Tablet] Previous Rx's Medication Instructions Recorded Ibuprofen [Motrin] 600 mg PO Q8HR PRN #20 tab 08/28/17 methocarbamoL [Robaxin-750] 750 mg PO TID PRN #30 tablet 10/07/20 predniSONE 60 mg PO DAILY #30 tab 10/07/20 Ketorolac [Toradol] 10 mg PO Q6HR #15 tab 07/22/22 Tamsulosin [Flomax] 0.4 mg PO DAILY #10 cap 07/22/22 Allergies Allergy/AdvReac Type Severity Reaction Status Date / Time No Known Allergies Allergy Verified 07/22/22 05:13 Review of Systems ROS Other: All systems not noted in ROS Statement are negative. <Luis Manuel Argueta - Last Filed: 07/22/22 06:09> ROS Other: All systems not noted in ROS Statement are negative. <Luis A Fofana - Last Filed: 07/22/22 08:33> ROS Statement: Those systems with pertinent positive or pertinent negative responses have been documented in the HPI. Past Medical History Past Medical History: No Reported History Additional Past Medical History / Comment(s): PCOS History of Any Multi-Drug Resistant Organisms: None Reported Past Surgical History: No Surgical Hx Reported Additional Past Surgical History / Comment(s): cystectomy Past Psychological History: No Psychological Hx Reported Smoking Status: Never smoker Past Alcohol Use History: Occasional Past Drug Use History: None Reported <Luis Manuel Argueta - Last Filed: 07/22/22 06:09> General Exam Limitations: no limitations General appearance: alert, in no apparent distress, obese Head exam: Present: atraumatic, normocephalic, normal inspection Eye exam: Present: normal appearance, PERRL Pupils: Present: normal accommodation ENT exam: Present: normal exam, normal oropharynx, mucous membranes moist Neck exam: Present: normal inspection, full ROM Respiratory exam: Present: normal lung sounds bilaterally Cardiovascular Exam: Present: regular rate, normal rhythm, normal heart sounds GI/Abdominal exam: Present: soft, tenderness (Tenderness palpation to the right lower quadrant) Extremities exam: Present: normal inspection, full ROM Back exam: Present: normal inspection, full ROM Neurological exam: Present: alert, oriented X3, CN II-XII intact Psychiatric exam: Present: normal affect, normal mood Skin exam: Present: warm, dry <Luis Manuel Argueta - Last Filed: 07/22/22 06:09> Course Vital Signs 07/22/22 07/22/22 05:14 08:10 Temperature 97.8 F Pulse Rate 66 79 Respiratory 26 H 18 Rate Blood Pressure 160/78 105/50 O2 Sat by Pulse 98 97 Oximetry Medical Decision Making - Lab Data Result diagrams: 07/22/22 05:43 <Luis Manuel Argueta - Last Filed: 07/22/22 06:09> - Lab Data Result diagrams: 07/22/22 05:43 07/22/22 05:43 <Luis A Fofana - Last Filed: 07/22/22 08:33> - Medical Decision Making Was pt. sent in by a medical professional or institution (, PA, TRAY DRIER OPERATOR, urgent care, hospital, or fpc...) When possible be specific @ -No Did you speak to anyone other than the patient for history (EMS, parent, family, police, friend...)? What history was obtained from this source @ -No Did you review nursing and triage notes (agree or disagree)? Why? @ -I reviewed and agree with nursing and triage notes Were old charts reviewed (outside hosp., previous admission, EMS record, old EKG, old radiological studies, urgent care reports/EKG's, fpc records)? Report findings @ -No Differential Diagnosis (chest pain, altered mental status, abdominal pain women, abdominal pain men, vaginal bleeding, weakness, fever, dyspnea, syncope, headache, dizziness, GI bleed, back pain, seizure, CVA, palpatations, mental health)? @ -Kidney stone, appendicitis, abdominal wall muscle strain EKG interpreted by me (3pts min.). @ -None X-rays interpreted by me (1pt min.). @ -None done CT interpreted by me (1pt min.). @ -CT abdomen and pelvis with IV contrast was obtained however was still pending at this time. U/S interpreted by me (1pt. min.). @ -None done What testing was considered but not performed or refused? (CT, X-rays, U/S, labs)? Why? @ -None What meds were considered but not given or refused? Why? @ -None Did you discuss the management of the patient with other professionals (professionals i.e. , PA, TRAY DRIER OPERATOR, lab, RT, psych nurse, social work lecturer, surgical garment assembler, teacher, senior vice president and chief information officer, bilingual case manager)? Give summary @ -No Was smoking cessation discussed for >3mins.? @ -No Was critical care preformed (if so, how long)? @ -No Were there social determinants of health that impacted care today? How? (Homelessness, low income, unemployed, alcoholism, drug addiction, transportation, low edu. Level, literacy, decrease access to med. care, [facility], rehab)? @ -No Was there de-escalation of care discussed even if they declined (Discuss DNR or withdrawal of care, Hospice)? DNR status @ -No What co-morbidities impacted this encounter? (DM, HTN, Smoking, COPD, CAD, Cancer, CVA, ARF, Chemo, Hep., AIDS, mental health diagnosis, sleep apnea, morb id obesity)? @ -Morbid obesity, PCOS Was patient admitted / discharged? Hospital course, mention meds given and route, prescriptions, significant lab abnormalities, going to OR and other pertinent info. @ -The patient was seen and evaluated emergency department. On evaluation, the patient was resting in bed stating that her pain had just subsided. Vital signs admission were stable. On evaluation, the patient had tenderness of patient to right lower quadrant and denied of any flank pain currently. The patient also had significant vaginal bleeding secondary to her current menstrual cycle therefore urinalysis could not be relied on for determining hematuria. Due to this in the setting of the patient's right lower quadrant pain, CT abdomen and pelvis with IV contrast was obtained. This imaging was still pending. The patient did receive 30 mg of Toradol. The patient was signed out pending completion of the imaging and reevaluation. The patient was signed out to Dr. Fofana at 0700 in stable condition. Undiagnosed new problem with uncertain prognosis? @ -No Drug Therapy requiring intensive monitoring for toxicity (Heparin, Nitro, Insulin, Cardizem)? @ -No Were any procedures done? @ -No Diagnosis/symptom? @ -Right lower quadrant abdominal pain Acute, or Chronic, or Acute on Chronic? @ -Acute Uncomplicated (without systemic symptoms) or Complicated (systemic symptoms)? @ -default Side effects of treatment? @ -No Exacerbation, Progression, or Severe Exacerbation? @ -No Poses a threat to life or bodily function? How? (Chest pain, [place], [place], pneumonia, PE, COPD, DKA, ARF, appy, cholecystitis, CVA, Diverticulitis, Homicidal, Suicidal, threat to staff... and all critical care pts) @ -No (Luis Manuel Argueta) Was patient admitted / discharged? Hospital course, mention meds given and route, prescriptions, significant lab abnormalities, going to OR and other pertinent info. @ -Patient's CAT scan came back and was interpreted by myself. CAT scan shows some dilatation of the renal collecting system. Patient has a questionable kid coleman stone. Patient had Dilaudid for pain and Toradol for pain. Went back in the room she was feeling comfortable and she will follow-up as needed. Undiagnosed new problem with uncertain prognosis? @ -No Drug Therapy requiring intensive monitoring for toxicity (Heparin, Nitro, Insulin, Cardizem)? @ -No Were any procedures done? @ -No Diagnosis/symptom? @ -Kidney stone Acute, or Chronic, or Acute on Chronic? @ -Acute Uncomplicated (without systemic symptoms) or Complicated (systemic symptoms)? @ -Complicated Side effects of treatment? @ -No Exacerbation, Progression, or Severe Exacerbation? @ -No Poses a threat to life or bodily function? How? (Chest pain, [place], [place], pneumonia, PE, COPD, DKA, ARF, appy, cholecystitis, CVA, Diverticulitis, Homicidal, Suicidal, threat to staff... and all critical care pts) @ -No (Luis A Fofana) - Lab Data Lab Results 07/22/22 07/22/22 07/22/22 Range/Units 05:43 05:43 05:53 WBC 12.0 H (3.8-10.6) k/uL RBC 4.70 (3.80-5.40) m/uL Hgb 13.2 (11.4-16.0) gm/dL Hct 39.7 (34.0-46.0) % MCV 84.4 (80.0-100.0) fL MCH 28.0 (25.0-35.0) pg MCHC 33.1 (31.0-37.0) g/dL RDW 13.6 (11.5-15.5) % Plt Count 279 (150-450) k/uL MPV 7.8 Neutrophils % 70 % Lymphocytes % 24 % Monocytes % 4 % Eosinophils % 2 % Basophils % 0 % Neutrophils # 8.4 H (1.3-7.7) k/uL Lymphocytes # 2.8 (1.0-4.8) k/uL Monocytes # 0.4 (0-1.0) k/uL Eosinophils # 0.2 (0-0.7) k/uL Basophils # 0.0 (0-0.2) k/uL Sodium 137 (137-145) mmol/L Potassium 4.3 (3.5-5.1) mmol/L Chloride 102 (98-107) mmol/L Carbon Dioxide 26 (22-30) mmol/L Anion Gap 9 mmol/L BUN 22 H (7-17) mg/dL Creatinine 0.78 (0.52-1.04) mg/dL Est GFR (CKD-EPI)AfAm >90 (>60 ml/min/1.73 sqM) Est GFR (CKD-EPI)NonAf >90 (>60 ml/min/1.73 sqM) Glucose 129 H (74-99) mg/dL Calcium 8.8 (8.4-10.2) mg/dL Magnesium 2.0 (1.6-2.3) mg/dL Total Bilirubin 0.4 (0.2-1.3) mg/dL AST 19 (14-36) U/L ALT 22 (4-34) U/L Alkaline Phosphatase 82 (38-126) U/L Total Protein 6.8 (6.3-8.2) g/dL Albumin 3.8 (3.5-5.0) g/dL Lipase 209 (23-300) U/L Urine Color Red Urine Appearance Cloudy H (Clear) Urine pH 5.5 (5.0-8.0) Ur Specific [place] 1.022 (1.001-1.035) Urine Protein 1+ H (Negative) Urine Glucose (UA) Negative (Negative) Urine Ketones Negative (Negative) Urine Blood Large H (Negative) Urine Nitrite Negative (Negative) Urine Bilirubin Negative (Negative) Urine Urobilinogen <2.0 (<2.0) mg/dL Ur Leukocyte Esterase Large H (Negative) Urine RBC >182 H (0-5) /hpf Urine WBC 126 H (0-5) /hpf Urine WBC Clumps Occasional H (None) /hpf Ur Squamous Epith Cells 2 (0-4) /hpf Urine Bacteria Rare H (None) /hpf Urine Mucus Many H (None) /hpf Urine HCG, Qual (Not Detectd) 07/22/22 Range/Units 05:53 WBC (3.8-10.6) k/uL RBC (3.80-5.40) m/uL Hgb (11.4-16.0) gm/dL Hct (34.0-46.0) % MCV (80.0-100.0) fL MCH (25.0-35.0) pg MCHC (31.0-37.0) g/dL RDW (11.5-15.5) % Plt Count (150-450) k/uL MPV Neutrophils % % Lymphocytes % % Monocytes % % Eosinophils % % Basophils % % Neutrophils # (1.3-7.7) k/uL Lymphocytes # (1.0-4.8) k/uL Monocytes # (0-1.0) k/uL Eosinophils # (0-0.7) k/uL Basophils # (0-0.2) k/uL Sodium (137-145) mmol/L Potassium (3.5-5.1) mmol/L Chloride (98-107) mmol/L Carbon Dioxide (22-30) mmol/L Anion Gap mmol/L BUN (7-17) mg/dL Creatinine (0.52-1.04) mg/dL Est GFR (CKD-EPI)AfAm (>60 ml/min/1.73 sqM) Est GFR (CKD-EPI)NonAf (>60 ml/min/1.73 sqM) Glucose (74-99) mg/dL Calcium (8.4-10.2) mg/dL Magnesium (1.6-2.3) mg/dL Total Bilirubin (0.2-1.3) mg/dL AST (14-36) U/L ALT (4-34) U/L Alkaline Phosphatase (38-126) U/L Total Protein (6.3-8.2) g/dL Albumin (3.5-5.0) g/dL Lipase (23-300) U/L Urine Color Urine Appearance (Clear) Urine pH (5.0-8.0) Ur Specific [place] (1.001-1.035) Urine Protein (Negative) Urine Glucose (UA) (Negative) Urine Ketones (Negative) Urine Blood (Negative) Urine Nitrite (Negative) Urine Bilirubin (Negative) Urine Urobilinogen (<2.0) mg/dL Ur Leukocyte Esterase (Negative) Urine RBC (0-5) /hpf Urine WBC (0-5) /hpf Urine WBC Clumps (None) /hpf Ur Squamous Epith Cells (0-4) /hpf Urine Bacteria (None) /hpf Urine Mucus (None) /hpf Urine HCG, Qual Not Detected (Not Detectd) Disposition <Luis Manuel Argueta - Last Filed: 07/22/22 06:09> Is patient prescribed a controlled substance at d/c from ED?: No Time of Disposition: 08:32 <Luis A Fofana - Last Filed: 07/22/22 08:33> Clinical Impression: Kidney stone Disposition: HOME SELF-CARE Condition: Good Prescriptions: Tamsulosin [Flomax] 0.4 mg PO DAILY #10 cap Ketorolac [Toradol] 10 mg PO Q6HR #15 tab Referrals: Paola Dunne MD [Primary Care Provider] - 1-2 days
[2022-07-22 07:09] LABS: Appearance,Urine Cloudy (Clear); Bacteria,Urine Rare /hpf; Bilirubin,Urine Negative (Negative); Blood,Urine Large (Negative); Color,Urine Red; Glucose,Urine (UA) Negative (Negative); Ketones,Urine Negative (Negative); Leukocyte Esterase,Urine Large (Negative); Mucus,Urine Many /hpf; Nitrite,Urine Negative (Negative); PH, Urine 5.5 (5.0-8.0); Protein,Urine 1+ (Negative); RBC,Urine >182 /hpf (0-5); Specific Gravity,Urine 1.022 (1.001-1.035); Squamous Epithelial Cell,Urine 2 /hpf (0-4); Urobilinogen,Urine <2.0 mg/dL (<2.0); WBC,Urine 126 /hpf (0-5)
--- NOTE | 2022-07-22 07:19 | CT ---
EXAMINATION TYPE: CT abdomen pelvis w con CT DLP: [id number] mGycm, Automated exposure control for dose reduction was used. DATE OF EXAM: 07/22/2022 6:26 AM COMPARISON: Ultrasound 07/08/2022 CLINICAL INDICATION:Female, 31 years old with history of Right lower quadrant pain, acute; RLQ pain, history of PCOS TECHNIQUE: Axial CT of the abdomen and pelvis. Sagittal and coronal reformats were created on a [employer] workstation. Contrast used:100 mL of Isovue 300 with IV Contrast, Oral contrast used: without Oral Contrast FINDINGS: LOWER CHEST: Unremarkable ABDOMEN LIVER: Diffusely hypoattenuating parenchyma. GALLBLADDER AND BILE DUCTS: Unremarkable. PANCREAS: Unremarkable. SPLEEN: Unremarkable. ADRENAL GLANDS: Unremarkable. KIDNEYS AND URETERS: Mild asymmetric right dilation of the collecting system. No evidence of calculus . The left and is without evidence for calculus or obstructive uropathy. Retained lobulations o f the kidneys. PELVIS BLADDER: Nondistended and grossly unremarkable. REPRODUCTIVE: Similar right dermoid cyst compared to prior ultrasound 07/08/2022 ABDOMEN & PELVIS STOMACH AND BOWEL: No evidence of bowel obstruction. The appendix is not visualized but there are no secondary signs of acute appendicitis. PERITONEUM/RETROPERITONEUM: No evidence of pneumoperitoneum or free fluid. VASCULATURE: No evidence of aortic aneurysm. MUSCULOSKELETAL: No acute osseous abnormalities, disc bulging at L4-L5. LYMPH NODES: No gross evidence for lymphadenopathy. SOFT TISSUE/ABDOMINAL WALL: Unremarkable IMPRESSION: 1. Mild dilation of the right collecting system which is subtle could represent recently passed mavis l calculus correlate with urinalysis for hematuria. No additional finding for acute abdominal process . 2. Stable right dermoid cyst. 3. Hepatic steatosis.
[2022-07-22 08:13] VITALS: RESP 18
[2022-07-22] MEDS: HYDROmorphone 0.5 MG/0.5 ML SYRINGE IVP STA (08:23)
[2022-07-22 09:01] VITALS: BP 116/49; PULSE 88; TEMP 98.7
== END 2022-07-22 09:01 | disposition home or self-care (01) ==
LOC: EC 05:09
DX: N20.0 Calculus of kidney (principal); K76.0 Fatty (change of) liver, not elsewhere classified
CPT/HCPCS: 36415; 80053; 83690; 83735; 85025; 81001; 81025; 74177; 99284; 96374; 96375 ×2; 96361; J2405; J1885; J1170; Q9967

== ENCOUNTER → 2022-11-29 | Outpatient (CLI) | payer OTHER ==
--- NOTE | 2022-11-29 15:45 | XR ---
EXAMINATION TYPE: XR chest 2V DATE OF EXAM: 11/29/2022 COMPARISON: NONE TECHNIQUE: PA and lateral views submitted. HISTORY: Cough FINDINGS: The lungs are clear and there is no pneumothorax, pleural effusion, or focal pneumonia. Heart size normal and no overt failure. Osseous structures intact. Coarsened interstitium.. IMPRESSION: 1. No acute process. Correlate for mild bronchitis or less likely interstitial pneumonitis.
== END | disposition home or self-care (01) ==
LOC: RADUSYALE 15:30
PROVIDERS: ATTEND Family Medicine
DX: R05.8 Other specified cough (principal)
CPT/HCPCS: 71046

== ENCOUNTER 2023-05-24 13:05 | Emergency (ER) | payer BC, OTHER ==
[2023-05-24 13:17] VITALS: BP 129/94; PULSE 92; RESP 18; TEMP 98.1
--- NOTE | 2023-05-24 14:06 | ED ---
Female Urogenital HPI - General Chief complaint: Vaginal Bleeding Stated complaint: cramping Time Seen by Provider: 05/24/23 13:49 Source: patient, RN notes reviewed Mode of arrival: ambulatory Limitations: no limitations - History of Present Illness Initial comments: This is a 32 year old female who presents to the emergency department for vaginal bleeding in . Patient is approximately 6 weeks and . States that the bleeding began last night. She has mild associated nausea as well as abdominal cramping. She had an ultrasound at [facility] 2 weeks ago. States that she did have something visualized in the uterus at that time. She has an upcoming appointment with Dr. Lee on 05/30 and is supposed to have a repeat ultrasound at that time as well. MD Complaint: vaginal bleeding - Related Data Home Medications Medication Instructions Recorded Confirmed Omeprazole [PriLOSEC] 20 mg PO AC-BRKFST 08/28/17 08/28/17 norgestimate-ethinyl estradioL 1 tab PO HS 08/28/17 08/28/17 [Sprintec 28 Day Tablet] Previous Rx's Medication Instructions Recorded Ibuprofen [Motrin] 600 mg PO Q8HR PRN #20 tab 08/28/17 methocarbamoL [Robaxin-750] 750 mg PO TID PRN #30 tablet 10/07/20 predniSONE 60 mg PO DAILY #30 tab 10/07/20 Ketorolac [Toradol] 10 mg PO Q6HR #15 tab 07/22/22 Tamsulosin [Flomax] 0.4 mg PO DAILY #10 cap 07/22/22 Allergies Allergy/AdvReac Type Severity Reaction Status Date / Time No Known Allergies Allergy Verified 05/24/23 13:11 Review of Systems ROS Statement: Those systems with pertinent positive or pertinent negative responses have been documented in the HPI. ROS Other: All systems not noted in ROS Statement are negative. Past Medical History Past Medical History: No Reported History Additional Past Medical History / Comment(s): PCOS History of Any Multi-Drug Resistant Organisms: None Reported Past Surgical History: No Surgical Hx Reported Additional Past Surgical History / Comment(s): cystectomy Past Psychological History: No Psychological Hx Reported Smoking Status: Never smoker Past Alcohol Use History: Rare Past Drug Use History: None Reported General Exam Limitations: no limitations General appearance: alert, in no apparent distress Head exam: Present: atraumatic, normocephalic, normal inspection Respiratory exam: Present: normal lung sounds bilaterally. Absent: respiratory distress, wheezes, rales, rhonchi, stridor Cardiovascular Exam: Present: regular rate, normal rhythm, normal heart sounds. Absent: systolic murmur, diastolic murmur, rubs, gallop, clicks Neurological exam: Present: alert, oriented X3, CN II-XII intact Psychiatric exam: Present: normal affect, normal mood Skin exam: Present: warm, dry, intact, normal color. Absent: rash Course Vital Signs 05/24/23 13:08 Temperature 98.1 F Pulse Rate 92 Respiratory 18 Rate Blood Pressure 129/94 O2 Sat by Pulse 100 Oximetry Medical Decision Making - Medical Decision Making This is a 32 year old female who presents to the emergency department for vaginal bleeding in . Was pt. sent in by a medical professional or institution? @ -No Did you speak to anyone other than the patient for history? @ -No Did you review nursing and triage notes? @ -Yes, and I agree, it is accurate with regards to the patient's symptoms. Were old charts reviewed? @ -No Differential Diagnosis? @ -Differential Vaginal Bleeding: Spontaneous , threatened , molar , ectopic , incompetent cervix, placenta previa, uterine rupture, dysfunctional uterine bleeding, hemorrhage, uterine fibroids, malignancy, coagulopathy, PID, cervicitis, adenomyosis, vaginal trauma, this is not meant to be an all- inclusive list. EKG interpreted by me (3pts min.)? @ -Not obtained X-rays interpreted by me (1pt min.)? @ -Not obtained CT interpreted by me (1pt min.)? @ -Not obtained U/S interpreted by me (1pt. min.)? @ -OB US obtained. My interpretation identifies a small intrauterine structure. What testing was considered but not performed? (CT, X-rays, U/S, labs)? Why? @ -None What meds were considered but not given? Why? @ -None Did you discuss the management of the patient with other professionals? @ -No Did you reconcile home meds? @ -No Was smoking cessation discussed for >3mins.? @ -No Was critical care preformed (if so, how long)? @ -No Were there social determinants of health that impacted care today? How? (Homelessness, low income, unemployed, alcoholism, drug addiction, transportation, low edu. Level, literacy, decrease access to med. care, fci, rehab)? @ -No Was there de-escalation of care discussed even if they declined? (Discuss DNR or withdrawal of care, Hospice)? @ -No What co-morbidities impacted this encounter? (DM, HTN, Smoking, COPD, CAD, Cancer, CVA, Hep., AIDS, mental health diagnosis, sleep apnea, morbid obesity)? @ -, PCOS Was patient admitted / discharged? @ -Discharged. Lab work obtained and found to be unremarkable. HCG is 529.7. Urinalysis negative for signs of infection. OB US obtained. This demonstrated a small anechoic intrauterine structure without evidence for yolk sac or pole at this time. This is likely related to early based on hCG level of 529.7. She is Rh- and rhoGAM was administered. Lab slip provided to the patient to have her hCG level repeated in 48 hours. Advised Tylenol as needed for pain relief. Patient discharged home in stable condition. Undiagnosed new problem with uncertain prognosis? @ -None Drug Therapy requiring intensive monitoring for toxicity (Heparin, Nitro, Insulin, Cardizem)? @ -None Were any procedures done? @ -None Diagnosis/symptom? @ -Threatened miscarriage Acute, or Chronic, or Acute on Chronic? @ -Acute Uncomplicated (without systemic symptoms) or Complicated (systemic symptoms)? @ -Uncomplicated Side effects of treatment? @ -None Exacerbation, Progression, or Severe Exacerbation] @ -Not applicable Poses a threat to life or bodily function? @ -No Return precautions reviewed in depth, the patient is instructed to return to the emergency department with any new, worsening, or concerning symptoms. Patient ve rbalized understanding. This case was discussed in detail with the attending ED physician, Dr. Woodruff. Presentation, findings, and treatment plan discussed in detail as well. - Lab Data Result diagrams: 05/24/23 14:56 05/24/23 14:56 Lab Results 05/24/23 05/24/23 05/24/23 Range/Units 14:56 14:56 14:56 WBC 11.2 H (3.8-10.6) k/uL RBC 4.78 (3.80-5.40) m/uL Hgb 13.3 (11.4-16.0) gm/dL Hct 41.3 (34.0-46.0) % MCV 86.2 (80.0-100.0) fL MCH 27.9 (25.0-35.0) pg MCHC 32.3 (31.0-37.0) g/dL RDW 15.0 (11.5-15.5) % Plt Count 302 (150-450) k/uL MPV 7.3 Neutrophils % 66 % Lymphocytes % 27 % Monocytes % 3 % Eosinophils % 2 % Basophils % 0 % Neutrophils # 7.4 (1.3-7.7) k/uL Lymphocytes # 3.0 (1.0-4.8) k/uL Monocytes # 0.4 (0-1.0) k/uL Eosinophils # 0.3 (0-0.7) k/uL Basophils # 0.0 (0-0.2) k/uL Sodium 140 (137-145) mmol/L Potassium 3.6 (3.5-5.1) mmol/L Chloride 108 H (98-107) mmol/L Carbon Dioxide 23 (22-30) mmol/L Anion Gap 9 mmol/L BUN 14 (7-17) mg/dL Creatinine 0.71 (0.52-1.04) mg/dL Est GFR (CKD-EPI)AfAm >90 (>60 ml/min/1.73 sqM) Est GFR (CKD-EPI)NonAf >90 (>60 ml/min/1.73 sqM) Glucose 103 H (74-99) mg/dL Calcium 9.2 (8.4-10.2) mg/dL Total Bilirubin 0.4 (0.2-1.3) mg/dL AST 20 (14-36) U/L ALT 21 (4-34) U/L Alkaline Phosphatase 79 (38-126) U/L Total Protein 6.9 (6.3-8.2) g/dL Albumin 3.8 (3.5-5.0) g/dL HCG, Quant 529.7 mIU/mL Urine Color Yellow Urine Appearance Clear (Clear) Urine pH 5.0 (5.0-8.0) Ur Specific Crump 1.031 (1.001-1.035) Urine Protein Trace H (Negative) Urine Glucose (UA) Negative (Negative) Urine Ketones Negative (Negative) Urine Blood Moderate H (Negative) Urine Nitrite Negative (Negative) Urine Bilirubin Negative (Negative) Urine Urobilinogen <2.0 (<2.0) mg/dL Ur Leukocyte Esterase Trace H (Negative) Urine RBC 3 (0-5) /hpf Urine WBC 12 H (0-5) /hpf Ur Squamous Epith Cells 4 (0-4) /hpf Urine Bacteria Rare H (None) /hpf Urine Mucus Moderate H (None) /hpf Blood Type Blood Type Recheck Bld Type Recheck Status Antibody Screen 05/24/23 05/24/23 Range/Units 14:56 14:56 WBC (3.8-10.6) k/uL RBC (3.80-5.40) m/uL Hgb (11.4-16.0) gm/dL Hct (34.0-46.0) % MCV (80.0-100.0) fL MCH (25.0-35.0) pg MCHC (31.0-37.0) g/dL RDW (11.5-15.5) % Plt Count (150-450) k/uL MPV Neutrophils % % Lymphocytes % % Monocytes % % Eosinophils % % Basophils % % Neutrophils # (1.3-7.7) k/uL Lymphocytes # (1.0-4.8) k/uL Monocytes # (0-1.0) k/uL Eosinophils # (0-0.7) k/uL Basophils # (0-0.2) k/uL Sodium (137-145) mmol/L Potassium (3.5-5.1) mmol/L Chloride (98-107) mmol/L Carbon Dioxide (22-30) mmol/L Anion Gap mmol/L BUN (7-17) mg/dL Creatinine (0.52-1.04) mg/dL Est GFR (CKD-EPI)AfAm (>60 ml/min/1.73 sqM) Est GFR (CKD-EPI)NonAf (>60 ml/min/1.73 sqM) Glucose (74-99) mg/dL Calcium (8.4-10.2) mg/dL Total Bilirubin (0.2-1.3) mg/dL AST (14-36) U/L ALT (4-34) U/L Alkaline Phosphatase (38-126) U/L Total Protein (6.3-8.2) g/dL Albumin (3.5-5.0) g/dL HCG, Quant mIU/mL Urine Color Urine Appearance (Clear) Urine pH (5.0-8.0) Ur Specific Crump (1.001-1.035) Urine Protein (Negative) Urine Glucose (UA) (Negative) Urine Ketones (Negative) Urine Blood (Negative) Urine Nitrite (Negative) Urine Bilirubin (Negative) Urine Urobilinogen (<2.0) mg/dL Ur Leukocyte Esterase (Negative) Urine RBC (0-5) /hpf Urine WBC (0-5) /hpf Ur Squamous Epith Cells (0-4) /hpf Urine Bacteria (None) /hpf Urine Mucus (None) /hpf Blood Type O Negative Blood Type Recheck O Neg Bld Type Recheck Status No Antibody Screen NEGATIVE - Radiology Data Radiology results: report reviewed, image reviewed Disposition Clinical Impression: Threatened Disposition: HOME SELF-CARE Instructions (If sedation given, give patient instructions): Threatened Miscarriage (ED) Additional Instructions: Return to the emergency department with any new, worsening, or concerning symptoms. Take the lab slip to the main [facility] lab in the hospital to have your blood work repeated in 48 hours. Take Tylenol as needed for pain relief. Follow up with your [employer] as scheduled. Is patient prescribed a controlled substance at d/c from ED?: No Referrals: Paola Dunne MD [Primary Care Provider] - 1-2 days Time of Disposition: 16:48
[2023-05-24] MEDS: ACETAMINOPHEN TAB 500 MG TAB PO STA (14:47)
[2023-05-24 15:09] LABS: Basophils % (A) 0 %; Eosinophils # (A) 0.3 k/uL (0-0.7); Eosinophils % (A) 2 %; HCT 41.3 % (34.0-46.0); HGB 13.3 gm/dL (11.4-16.0); Lymphocytes % (A) 27 %; MCH 27.9 pg (25.0-35.0); MCHC 32.3 g/dL (31.0-37.0); MCV 86.2 fL (80.0-100.0); Mean Platelet Volume 7.3; Monocytes # (A) 0.4 k/uL (0-1.0); Monocytes % (A) 3 %; Neutrophils # (A) 7.4 k/uL (1.3-7.7); Neutrophils % (A) 66 %; Platelet Count 302 k/uL (150-450); RBC 4.78 m/uL (3.80-5.40); WBC 11.2 k/uL (3.8-10.6)
[2023-05-24 15:10] LABS: Appearance,Urine Clear (Clear); Bacteria,Urine Rare /hpf; Bilirubin,Urine Negative (Negative); Blood,Urine Moderate (Negative); Color,Urine Yellow; Glucose,Urine (UA) Negative (Negative); Ketones,Urine Negative (Negative); Leukocyte Esterase,Urine Trace (Negative); Mucus,Urine Moderate /hpf; Nitrite,Urine Negative (Negative); Protein,Urine Trace (Negative); RBC,Urine 3 /hpf (0-5); Specific Gravity,Urine 1.031 (1.001-1.035); Squamous Epithelial Cell,Urine 4 /hpf (0-4); Urobilinogen,Urine <2.0 mg/dL (<2.0); WBC,Urine 12 /hpf (0-5)
[2023-05-24 15:26] LABS: ALT 21 U/L (4-34); AST 20 U/L (14-36); African American GFR (CKD) >90 (>60 ml/min/1.73 sqM); Albumin 3.8 g/dL (3.5-5.0); Alkaline Phosphatase 79 U/L (38-126); Anion Gap 9 mmol/L; Blood Urea Nitrogen 14 mg/dL (7-17); Calcium 9.2 mg/dL (8.4-10.2); Carbon Dioxide 23 mmol/L (22-30); Chloride 108 mmol/L (98-107); Glucose 103 mg/dL (74-99); Non-African American GFR(CKD) >90 (>60 ml/min/1.73 sqM); Potassium 3.6 mmol/L (3.5-5.1); Sodium 140 mmol/L (137-145); Total Bilirubin 0.4 mg/dL (0.2-1.3); Total Protein 6.9 g/dL (6.3-8.2)
[2023-05-24 15:43] LABS: HCG,Quantitative Serum 529.7 mIU/mL
--- NOTE | 2023-05-24 16:18 | US ---
EXAMINATION TYPE: Transabdominal DATE OF EXAM: 05/24/2023 3:57 PM COMPARISON: NONE CLINICAL INDICATION: Female, 32 years old with history of Vaginal bleeding in ; spotting, hx missed , hx right dermoid cyst, hx PCOS EXAM PERFORMED: Transvaginal (TV) and Transabdominal (TA) EXAM MEASUREMENTS: GESTATIONAL AGE / DATING Physician Established: Not yet established Dates by LMP: (7 weeks/2 days) EDC: 01/07/2023 Dates by First Scan: outside scan performed last week and measured 4 weeks 6 days per patient Dates by Current Scan for: (4 weeks/6 days) MATERNAL ANATOMY Uterus: 8.9x5.6x7.2cm Right Ovary: 3.4x3.0x3.1. Right Dermoid cyst again seen, unable to differentian ovarian tissue from c yst. Dermoid plug =1.3x1.2x1.7cm Left Ovary: obscured by bowel Post CDS / Adnexa: small fluid posterior cul de sac Presence of free fluid: post cul de sac Presence of corpus luteal cyst: no Presence of subchorionic bleed: no GESTATION / SURVEY CRL: not seen with certainty MSD: (4 weeks/6 days) Yolk Sac (normal less than 6mm): not visualized Heart Rate: not visualized IUP: possible gestation sac noted within the fundal portion of the endometrium Date of LMP: 04/03/2023 Beta HcG (if available): 529.7 exam limited by bowel and body habitus IMPRESSION: Small anechoic intrauterine cystic structure without evidence for yolk sac or pole at this time . This is thought to represent an early gestational sac with a positive beta hCG of 529.7 mIU/mL, how ever ectopic and abnormal intrauterine cannot be ruled out based on this exam bro ne. Follow-up with pelvic ultrasound in 7-10 days and serial beta-hCG studies are recommended to en s ure further development of the fetus.
[2023-05-24] MEDS: Rhogam IMMUNE GLOBULIN 1,500 UNIT/1 ML IM ONE (16:51)
== END 2023-05-24 15:01 | disposition home or self-care (01) ==
LOC: EC 13:05
DX: O20.0 Threatened abortion (principal); Z3A.01 Less than 8 weeks gestation of pregnancy
CPT/HCPCS: 99284 ×2; 96372 ×2; 36415; 86900; 86901; 80053; 85025; 86850; 81001; 84702; 87086; 76801; 76817; J2790

== ENCOUNTER → 2023-05-26 | Outpatient (CLI) | payer BC | END | disposition home or self-care (01) | LOC: LABWHC1 08:39 | PROVIDERS: ATTEND Physician Assistant | DX: O20.0 Threatened abortion (principal); Z3A.00 Weeks of gestation of pregnancy not specified | CPT/HCPCS: 36415; 84702 ==

== ENCOUNTER 2024-01-05 22:51 | Outpatient (CLI) | payer BC, OTHER ==
[2024-01-06 00:44] VITALS: BP 135/67; PULSE 85; RESP 16; TEMP 97.2
--- NOTE | 2024-01-18 09:01 | P.MSEPDOC ---
Presenting Problems - Arrival Data Date of Arrival on Unit: 01/06/24 Time of Arrival on Unit: 22:50 Mode of Transport: Ambulatory - Complaint OB-Reason for Admission/Chief Complaint: Headache, Elevated Blood Pressure Medical History - Information : 3 Para: 0 Term: 0 : 0 Abortions: Spontaneous or Elective: 0 Number of Living Children: 0 - Gestational Age Gestational Age by MARY (wks/days): 20 Weeks and 5 Days Review of Systems - Review of Systems Constitutional: No problems Breast: No problems ENT: No problems Cardiovascular: No problems Respiratory: No problems Gastrointestinal: No problems Genitourinary: No problems Musculoskeletal: No problems Neurological: No problems Skin: No problems Vital Signs - Temperature Temperature: 97.2 F Temperature Source: Oral - Pulse Right Pulse Rate: 85 Pulse Assessment Method: Automatic Cuff - Respirations Respiratory Rate: 16 Oxygen Delivery Method: Room Air O2 Sat by Pulse Oximetry: 98 - Blood Pressure Right Arm Blood Pressure: 135/67 Blood Pressure Mean: 89 Blood Pressure Source: Automatic Cuff Physician Notification - Physician Notified Physician Notified Date: 01/05/24 Physician Notified Time: 23:59 Physician: Sarahi Joya Order Received: Yes (DC) Maternal Triage Index - Maternal Triage Index Presenting for scheduled procedure w/no complaint: No - Stat/Priority 1 Stat Priority 1: No - Urgent/Priority 2 Urgent Priority 2: No - Prompt/Priority 3 Prompt Priority 3: No - Non-Urgent/Priority 4 Non-Urgent Priority 4: Yes Criteria Met for Priority 4: Dr Joya advised of pts reason for visit 20 4/7 here with elevated BP's 180s/100s and headache at home, BPs here 135/67, 121/51. Pt headache lessened. Unable to doppler FHT due to pt 420# with anterior placenta. movement heard during attempt. Discharge order received with pt to take tylenol as needed for headache and follow up with Dr Lee and Family Practice who orders her BP meds within the next week Disposition - Disposition OB Disposition: Discharge to home Discharge Date: 01/06/24 Discharge Time: 00:10 I agree with the RN Medical Screening Exam: Yes Physician's MSE Comment: I have neither seen nor examined the patient Case reviewed; plan agreed upon as documented in EMR&OBIX.: Yes Diagnosis: RELATED CONDITIONS, UNSPECIFIED, SECOND TRIMESTER
== END 2024-01-06 00:10 ==
LOC: FBPOP 22:51
PROVIDERS: ATTEND Obstetrics & Gynecology
DX: O26.892 Other specified pregnancy related conditions, second trimester (principal); R51.9 Headache, unspecified; R03.0 Elevated blood-pressure reading, without diagnosis of hypertension; Z3A.20 20 weeks gestation of pregnancy; Z79.899 Other long term (current) drug therapy
CPT/HCPCS: 99213

== ENCOUNTER 2024-05-02 14:26 | Outpatient (CLI) | payer OTHER ==
[2024-05-02 15:20] VITALS: BP 142/65; PULSE 103; RESP 16; TEMP 97
== END 2024-05-02 15:21 ==
LOC: FBPOP 14:26
PROVIDERS: ATTEND Obstetrics & Gynecology Obstetrics
DX: O21.9 Vomiting of pregnancy, unspecified (principal); Z3A.37 37 weeks gestation of pregnancy
CPT/HCPCS: 59025

== ENCOUNTER 2024-05-07 16:42 | Outpatient (CLI) | payer OTHER | END 2024-05-07 17:28 | disposition home or self-care (01) | LOC: FBPOP 16:42 | PROVIDERS: ATTEND Obstetrics & Gynecology Obstetrics | DX: O99.012 Anemia complicating pregnancy, second trimester (principal); Z3A.20 20 weeks gestation of pregnancy | CPT/HCPCS: 59025 ==